=== PATIENT | male | born 1930 | race Caucasian/White ===

== ENCOUNTER 2018-07-11 18:05 | Emergency (ER) | payer OTHER ==
[~2018-07-11] VITALS: Ht 172.7 cm; Wt 93.9 kg
[2018-07-11 18:25] VITALS: Ht 172.7 cm; Wt 93.9 kg
[2018-07-11 20:56] VITALS: BP 140/80
== END 2018-07-11 20:56 | disposition home or self-care (01) ==
LOC: ED 18:05
DX: S02.2XXA Fracture of nasal bones, initial encounter for closed fracture (principal); S80.812A Abrasion, left lower leg, initial encounter; I10 Essential (primary) hypertension; E11.9 Type 2 diabetes mellitus without complications; W01.0XXA Fall on same level from slipping, tripping and stumbling without subsequent striking against object, initial encounter; Y93.89 Activity, other specified; Y92.89 Other specified places as the place of occurrence of the external cause; Y99.8 Other external cause status
CPT/HCPCS: 90715